=== PATIENT | male | born 1945 | race Caucasian/White ===

== ENCOUNTER → 2016-09-15 | Outpatient (CLI) | payer OTHER ==
--- NOTE | ~2016-09-15 | TH ---
Unit #: [id number] #: [id number] Patient: CLEVE FAULKNER [id number] [address] [address] [id number] O MR#: [id number] NAME: CLEVE FAULKNER : 1945 SEX: M STUDY DATE/TIME: 09/15/2016 UNIT: [facility] ROOM: STUDY DESCRIPTION: NUCLEAR STRESS TEST Attending Physician: Thai Monique M.D. Referring Physician: Thai Monique M.D. Primary Care Physician: Thai Monique M.D. CARDIOLOGY REPORT EXAM Nuclear Stress Test INDICATION Chest discomfort and lower extremity edema. SUMMARY The patient underwent nuclear stress study. Received resting dose of 11.62 mCi and stress dose 32.9 mCi. On gated imaging, patient appears to have normal wall motion with a preserved ejection fraction. The patient's LVEF is 71%. EDV is 134, ESV is 66. On perfusion imaging, comparing rest and stress images, there appears to be a fixed defect involving the inferior apical segment. On gated imaging, patient has normal wall motion, most likely representing an artifact. CONCLUSION 1. No obvious ischemia. 2. Preserved ejection fraction. 3. Inferior attenuation artifact. 4. ECG portion to be dictated separately. Dictated by... Giselle Herrera/freddy TD: 09/15/2016 22:25 JOB #: [id number] Unit #: [id number] #: [id number] Patient: CLEVE FAULKNER CARDIOLOGY REPORT X KRISTINE BURGESS MD CARDIOLOGY REPORT
== END | disposition home or self-care (01) ==
LOC: CNUC 08:07
DX: R07.9 Chest pain, unspecified (principal)
CPT/HCPCS: 78452; 93017; A9500; J2785